=== PATIENT | male | born 1945 | race Caucasian/White ===

== ENCOUNTER 2021-12-29 12:53 | Emergency (ER) | payer MEDICARE, OTHER, SELFPAY ==
[2021-12-29 13:03] VITALS: BP 140/71; PULSE 78; RESP 18; TEMP 36.4; O2SAT 98
--- NOTE | 2021-12-29 13:15 | DI.RAD_ITS ---
Exam(s) XR PORTABLE CHEST AP EXAM: XR PORTABLE CHEST AP CLINICAL HISTORY: cough. copd TECHNIQUE: 2D digital imaging was performed. COMPARISON: No exams were available for comparison FINDINGS: LUNGS: Increased densities are noted above the left diaphragm suspicious for pneumonia. The remainde r of the lung logan appear clear. No pleural abnormality seen. HEART: Within normal limits in size. AORTA: Mildly ectatic. BONES: Degenerative changes in the spine and right shoulder. Soft tissues: Unremarkable. IMPRESSION: Left lower lobe infiltrate. DATA REPOSITORY: RADIATION DOSE DELIVERED:
--- NOTE | 2021-12-29 13:27 | ED.GENADUL_ITS ---
Discharge Plan Disposition Patient Disposition: HOME Condition: Stable Discharge Details Clinical Impression: Pneumonia Primary Care Provider: Mary Del Rio ED Provider: Sebastián Olguin Home Meds and New Rx's Prescriptions: New amoxicillin-pot clavulanate 875-125 mg tablet 1 tab PO BID 7 Days Qty: 14 0RF azithromycin 250 mg tablet 250 mg PO DAILY 4 Days Qty: 4 0RF Rx Instructions: start on day 2 of therapy albuterol sulfate 90 mcg/actuation HFA aerosol inhaler 2 puff inhalation Q6H PRNQty: 6.7 0RF amoxicillin-pot clavulanate 875-125 mg tablet 1 tab PO BID 7 Days Qty: 14 0RF azithromycin 250 mg tablet 250 mg PO DAILY 4 Days Qty: 4 0RF Rx Instructions: start on day 2 of therapy Discharge Instructions Instructions: Pneumonia (ED) Additional Instructions: Please follow with your primary care physician. Please take antibiotics as prescribed. Please return to the emergency department for any worsening symptoms. Medical Decision Making 76-year-old male history of COPD presents with wheeze cough nasal congestion fatigue and low-grade fever over the past 1 to 2 days in the setting of being exposed to someone who was positive for COVID. Hemodynamically stable no acute distress speaking full sentences lungs clear bilaterally, no hypoxia no tachypnea no tachycardia afebrile currently. Likely viral syndrome must also consider COVID-19 versus pneumonia versus COPD exacerbation low suspicion for cardiac etiology. Will obtain screening x-ray, nebs dexamethasone COVID swab likely home with close follow-up 14: 45 patient resting company no acute distress. Evidence of left lower lobe pneumonia on x-ray. Will treat empirically with Augmentin and azithromycin. Home care instructions and return precautions HPI General Date/Time Provider Initiated Documentation: 12/29/21 13:17 . HPI Narrative: 76-year-old male history of COPD, presents with cough wheezing nasal congestion low-grade fever over the past 1 to 2 days. Of note was recently exposed to someone who was COVID-positive. Related Data Home Medications Medication Instructions Recorded Confirmed albuterol sulfate 90 mcg/actuation 2 puff inhalation Q6H PRN #6.7 12/29/21 aerosol inhaler grams amoxicillin 875 mg-potassium 1 tab PO BID 7 days #14 tabs 12/29/21 clavulanate 125 mg tablet amoxicillin 875 mg-potassium 1 tab PO BID 7 days #14 tabs 12/29/21 clavulanate 125 mg tablet azithromycin 250 mg tablet 250 mg PO DAILY 4 days #4 tabs 12/29/21 azithromycin 250 mg tablet 250 mg PO DAILY 4 days #4 tabs 12/29/21 Previous Rx's Medication Instructions Recorded albuterol sulfate 90 mcg/actuation 2 puff inhalation Q6H PRN #6.7 12/29/21 aerosol inhaler grams amoxicillin 875 mg-potassium 1 tab PO BID 7 days #14 tabs 12/29/21 clavulanate 125 mg tablet amoxicillin 875 mg-potassium 1 tab PO BID 7 days #14 tabs 12/29/21 clavulanate 125 mg tablet azithromycin 250 mg tablet 250 mg PO DAILY 4 days #4 tabs 12/29/21 azithromycin 250 mg tablet 250 mg PO DAILY 4 days #4 tabs 12/29/21 Allergies Allergy/AdvReac Type Severity Reaction Status Date / Time Sulfa (Sulfonamide Allergy Unverified 12/29/21 13:52 Antibiotics) General Stated Complaint: [employer] MANUEL: 4 Review of Systems Narrative: Review of Systems Constitutional: negative Eyes: negative ENT: Nasal congestion Cardiovascular: negative Respiratory: Cough, wheeze Gastrointestinal: negative : negative Musculoskeletal: negative Skin: negative Neurologic: negative Psych: negative PFSH All Active Problems (Updated 12/29/21 @ 14:47 by Sebastián Olguin MD) Pneumonia (Acute) Social History Smoking/Tobacco Use Status: Former Tobacco Use Smoking risk assessment performed?: Yes Alcohol Intake: current Alcohol Intake frequency: 3 or more drinks per day Drug use: Never Substance use type: does not use Do you feel safe at home: Yes Do you feel safe in your relationship?: Yes Exam Narrative Exam Narrative: Physical Examination General: alert, awake, cooperative, resting comfortably, no acute distress HEENT: normocephalic, atraumatic; PERRL, EOM intact, conjunctiva normal; no nasal discharge; moist mucous membranes, oral and pharyngeal mucosa normal, tolerating secretions Neck: supple, trachea midline; full ROM Chest: normal to inspection Respiratory: normal respiratory effort, speaking in full sentences, clear to auscultation, no wheezing, rales or rhonchi Cardiac: regular rate, regular rhythm, S1S2 intact, no murmurs rubs or gallops GI: abdomen soft, non-tender, non-distended; no palpable mass or hepatosplenomegaly Skin: no lesions, rashes or trauma appreciated Neuro: AAOx3, normal speech, moving all extremities Psych: Appropriate mood and affect Course Vital Signs Vital signs: Vital Signs Temperature 36.4 C L 12/29/21 13:03 Pulse 78 12/29/21 13:03 Respiratory Rate 18 12/29/21 13:03 Blood Pressure 140/71 12/29/21 13:03 Pulse Oximetry 98 12/29/21 13:03 Temperature 36.4 C L 12/29/21 13:03 Temperature Source Temporal Artery Scan 12/29/21 13:03 Pulse 78 12/29/21 13:03 Respiratory Rate 18 12/29/21 13:03 Respiratory Effort Non-Labored 12/29/21 13:06 Blood Pressure 140/71 12/29/21 13:03 Blood Pressure Position Sitting 12/29/21 13:03 Pulse Oximetry 98 12/29/21 13:03 Oxygen Delivery Method Room Air 12/29/21 13:03 Oxygen Flow Rate 0 12/29/21 13:03 PAWSS Have you Been Recently Intoxicated or Drunk Within the Last 30 days?: No Have you Ever Experienced Previous Episodes of Alcohol Withdrawal?: No Have you ever Experienced Withdrawal Seizures?: No Have you ever Experienced Delirium Tremens(DT)s?: No Have you ever undergone Alcohol Rehabilitation Treatment (i.e, inpt ot outpatient treatment programs)?: No Have you ever Experienced Blackouts?: No Have you ever Combined Alcohol with other Downers within the last 90 days?: No Have you ever Combined Alcohol with any other Substance of Abuse during the last 90 days?: No Positive Blood Alcohol level on Presentation? [PCS.BAL]: No Evidence of Increased Autonomic Activity (i.e. HR>120, tremor, sweating, agitation, nausea)?: No Result: 0
[2021-12-29] MEDS: Dexamethasone 10 MG/ML VIAL IM (13:49)
[2021-12-29] MEDS: Albuterol/Ipratropium 3 ML UPD VIAL UPD (13:50)
[2021-12-29 13:53] VITALS: RESP 18
[2021-12-29] MEDS: Azithromycin 250 MG TAB 500 MG PO (14:33)
[2021-12-29] MEDS: Amoxicillin 875/Clav. 125 TAB PO (14:34)
[2021-12-29 14:35] LABS: Source Nasal/Nares
[2021-12-29 15:00] LABS: COVID-19 PCR POSITIVE (Negative)
[2021-12-29 15:37] VITALS: BP 157/83; PULSE 81; RESP 20; O2SAT 98
== END 2021-12-29 15:38 | disposition home or self-care (01) ==
PROVIDERS: Emergency Provider Emergency Medicine
DX: U07.1 COVID-19 (principal); J12.82 Pneumonia due to coronavirus disease 2019; J44.9 Chronic obstructive pulmonary disease, unspecified; Z87.891 Personal history of nicotine dependence
CPT/HCPCS: 87635; 94640; 96372; 99284; 71045; J1100; J7620

== ENCOUNTER 2023-12-09 10:08 | Emergency (ER) | payer MEDICARE, OTHER, SELFPAY ==
[2023-12-09] VITALS (34 sets, daily range): BP systolic 128–175; BP diastolic 69–111; PULSE 73–100; RESP 13–38; TEMP 38.8; O2SAT 97–100
--- NOTE | 2023-12-09 10:30 | RT.EKG_ITS ---
APPROVED REPORT Exam: Resting ECG Reason for Exam: SOB Patient Location: E HR:87 bpm ECG Measurements Heart Rate 87 AXIS HI 222 P 56 QRSd 97 QRS -10 QT 345 T 1 QTc 416 Conclusion Sinus rhythm...normal P axis, V-rate 60- 99 Prolonged HI interval...HI >220, V-rate 50- 90 Low voltage, precordial leads...precordial leads <1.0mV
--- NOTE | 2023-12-09 10:30 | DI.RAD_ITS ---
Exam(s) XR PORTABLE CHEST AP EXAM: XR PORTABLE CHEST AP CLINICAL HISTORY: SOB, Cough, PUI. TECHNIQUE: 2D digital imaging was performed. COMPARISON: CR XR PORTABLE CHEST AP from 12/29/2021 FINDINGS: Single AP portable view. Limited by portable AP lordotic technique and poor inspiratory effort. Heart size is upper normal. The mediastinum is not widened. Mild increased markings noted in the right lung base. Left lung appears clear. No obvious pleural e ffusions. Advanced degenerative changes in the right shoulder glenohumeral joint. IMPRESSION: As above. Recommend nonportable PA and lateral views when clinically possible. DATA REPOSITORY: RADIATION DOSE DELIVERED:
--- NOTE | 2023-12-09 10:41 | ED.GENADUL_ITS ---
Discharge Plan Disposition Patient Disposition: Home Condition: Stable Discharge Details Clinical Impression: Pneumonia Primary Care Provider: Mary Del Rio ED Provider: Tawanna Huff Home Meds and New Rx's Prescriptions: New doxycycline hyclate 100 mg capsule 100 mg PO BID 10 Days Qty: 20 0RF Rx Instructions: Take 1 tablet twice daily for the next 10 days Continued albuterol sulfate 90 mcg/actuation HFA aerosol inhaler 2 puff inhalation Q6H PRNQty: 6.7 0RF atorvastatin 40 mg tablet 40 mg PO DAILY levocetirizine 5 mg tablet 5 mg PO DAILY montelukast 10 mg tablet 10 mg PO DAILY tamsulosin 0.4 mg capsule 0.4 mg PO DAILY valsartan 320 mg tablet 320 mg PO DAILY verapamil 240 mg capsule,ext rel. pellets 24 hr 240 mg PO DAILY triamcinolone acetonide 0.025 % cream 1 applic TOPICAL DAILY PRN minocycline 100 mg capsule 100 mg PO DAILY betamethasone dipropionate 0.05 % cream 1 applic TOPICAL BID Patient Comments: APPLY TO RASH ON BACK TWICE DAILY FOR 2 TO 3 WEEKS etodolac 500 mg tablet 500 mg PO ONCE PRN levothyroxine [Synthroid] 88 mcg tablet 88 mcg PO DAILY Discharge Instructions Instructions: Pneumonia, Adult ED Additional Instructions: Today the chest x-ray appears you have pneumonia. Please take the antibiotic with yogurt or a probiotic twice daily as directed for the next 10 days. Increase oral fluids. Follow up with primary care provider in 3-5 days. Return to ED sooner if any worsening cough, shortness of breath, confusion or concerns. Please take Tylenol or Ibuprofen with food every 4-6 hours as needed for pain and swelling. Continue to use your albuterol inhaler as previously prescribed 1 or 2 puffs every 4-6 hours as needed. Referrals: Mary Del Rio MD [Primary Care Provider] - 5 days HPI General Mode of arrival: ambulatory . Date/Time Provider Initiated Documentation: 12/09/23 10:25 . Limitations to Documentation: no limitations . Information obtained by: patient, RN notes reviewed and old records reviewed . HPI Narrative: 78-year-old male presents to the ER with a chief complaint of URI type symptoms, cough fever and bodyaches since last night. He also reports sore throat. Ibuprofen at 9:00. He is febrile upon arrival. He does have expiratory wheezes with auscultation, does take albuterol as needed. Other past medical history includes high cholesterol, hypothyroidism hypertension. Denies any chest pain, nausea vomiting diarrhea or any other associated symptoms. Related Data Home Medications ?Medication ?Instructions ?Recorded ?Confirmed albuterol sulfate 90 mcg/actuation 2 puff inhalation Q6H PRN #6.7 12/29/21 12/09/23 aerosol inhaler grams atorvastatin 40 mg tablet 40 mg PO DAILY 12/09/23 12/09/23 betamethasone dipropionate 0.05 % 1 applic topical BID 12/09/23 12/09/23 topical cream doxycycline hyclate 100 mg capsule 100 mg PO BID Pneumonia 10 days 12/09/23 #20 caps etodolac 500 mg tablet 500 mg PO ONCE PRN 12/09/23 12/09/23 levocetirizine 5 mg tablet 5 mg PO DAILY 12/09/23 12/09/23 levothyroxine 88 mcg tablet 88 mcg PO DAILY 12/09/23 12/09/23 (Synthroid) minocycline 100 mg capsule 100 mg PO DAILY 12/09/23 12/09/23 montelukast 10 mg tablet 10 mg PO DAILY 12/09/23 12/09/23 tamsulosin 0.4 mg capsule 0.4 mg PO DAILY 12/09/23 12/09/23 triamcinolone acetonide 0.025 % 1 applic topical DAILY PRN 12/09/23 12/09/23 topical cream valsartan 320 mg tablet 320 mg PO DAILY 12/09/23 12/09/23 verapamil 240 mg 24 hr 240 mg PO DAILY 12/09/23 12/09/23 capsule,extended release Previous Rx's ?Medication ?Instructions ?Recorded albuterol sulfate 90 mcg/actuation 2 puff inhalation Q6H PRN #6.7 12/29/21 aerosol inhaler grams doxycycline hyclate 100 mg capsule 100 mg PO BID Pneumonia 10 days 12/09/23 #20 caps Allergies Allergy/AdvReac Type Severity Reaction Status Date / Time Sulfa (Sulfonamide Allergy Unverified 12/29/21 13:52 Antibiotics) General Stated Complaint: RespSymp MANUEL: 3 Review of Systems All systems reviewed & are unremarkable except as noted in HPI and below Constitutional Constitutional: Reports as per HPI, Reports body ache(s) and Reports fever(s) Cardiovascular Cardiovascular: Reports dyspnea Respiratory Respiratory: Reports change in phlegm color (Green), Reports cough, Reports pain with cough and Reports dyspnea Exam Narrative Exam Narrative: Constitutional: Alert and oriented x3. Appears stated age. Normal body habitus. Head: Normocephalic, no trauma. Eyes: Pupils PERRL, Red reflex noted, EOM's intact. Eyelids symmetrical without lesions, discharge, or swelling. ENT: Bilateral TM's WNL, External ear normal to inspection, no mastoid TTP, swelling, or erythema, Nasal turbinates WNL, no nasal discharge. Normal dentition, Posterior pharynx WNL, no exudate. Chest: RRR, Normal S1, S2, distal pulses intact. Resp: Expiratory wheezes throughout, scattered Abdomen: Soft, non-distended, Normoactive bowel sounds all 4 quads. Musculoskeletal: Normal gait, Moves all 4 extremities without difficulty. Skin: No suspicious rashes or lesions. Capillary refill less than 2 sec. Neurologic: Cranial nerves II-XII intact. Alert and oriented x 3. Motor: No deficits noted. Sensory: Intact bilaterally all 4 extremities. Hematologic/Lymphatic: No ecchymosis, no lymphadenopathy. Course Vital Signs Vital signs: Vital Signs Temperature 38.8 C H 12/09/23 10:20 Pulse 77 12/09/23 10:20 Respiratory Rate 24 12/09/23 10:20 Blood Pressure 161/83 H 12/09/23 10:20 Pulse Oximetry 98 12/09/23 10:20 Temperature 38.8 C H 12/09/23 10:20 Temperature Source Oral 12/09/23 10:20 Pulse 77 12/09/23 10:20 Respiratory Rate 24 12/09/23 10:20 Blood Pressure 161/83 H 12/09/23 10:20 Blood Pressure Position Sitting 12/09/23 10:20 Pulse Oximetry 98 12/09/23 10:20 Oxygen Delivery Method Room Air 12/09/23 10:20 Oxygen Flow Rate 0 12/09/23 10:20 Pain Level 5 12/09/23 10:20 Lab/Test Results Lab/Test Results: 12/09/23 10:40 Blood Blood Culture - Pending 12/09/23 10:40 Blood Blood Culture - Pending Medical Decision Making 78-year-old male presents to the ER with a chief complaint of URI type symptoms, cough fever and bodyaches since last night. He also reports sore throat. Ibuprofen at 9:00. He is febrile upon arrival. He does have expiratory wheezes with auscultation, does take albuterol as needed. Other past medical history includes high cholesterol, hypothyroidism hypertension. Denies any chest pain, nausea vomiting diarrhea or any other associated symptoms. Workup ordered including serial troponins, CBC CMP lactate blood cultures x 2 chest x-ray Fluvid Initial troponin less than 50 lactate 2.4 no leukocytosis, negative COVID flu RSV. Chest x-ray shows pneumonia, EKG within normal limits. Please see official report. X-ray shows pneumonia, patient is getting doxycycline 100 mg IV piggyback. Negative for COVID flu RSV. Lactate is 2.4. BUN 19 creatinine 1.2 discussed home care and x-ray results. I did offer admission patient is requesting to be discharged home at this time. He is declining admission. is at bedside he does have medical decision-making capacity is alert and oriented, O2 sat has been stable with room air. This text was generated using [employer] dictation system, please disregard any oddities of phrase or misspellings. Medical Records Medical records reviewed: Yes I reviewed the patient's medical records. Lab Data Lab results reviewed: Yes I reviewed the patient's lab results. Labs: 12/09/23 12:15 Blood Blood Culture - Pending 12/09/23 11:15 Blood Blood Culture - Pending Laboratory Tests Range/Units 12/09/23 12/09/23 12/09/23 10:24 11:15 12:15 WBC (4.4-10.8) 10^3/uL 3.89 L RBC (4.36-5.78) 10^6/uL 4.17 L Hgb (13.5-17.5) g/dL 13.7 Hct (40.0-50.0) % 41.5 MCV (80-95) fL 100 H MCH (27.0-33.0) pg 32.9 MCHC (32.0-36.0) % 33.0 RDW (11.8-14.1) % 12.5 Plt Count (130-400) 10^3/uL 110 L MPV (8.0-11.0) fL 10.7 Immature Gran % % 0.3 Neutrophils % % 68.4 Lymphocytes % % 17.7 Monocytes % % 11.8 Eosinophils % % 0.8 Basophils % % 1.0 Nucleated RBC % (0.0-0.3) % 0.0 Absolute Neutrophils (1.2-6.7) 10^3/uL 2.66 Absolute Lymphocytes (1.2-3.4) 10^3/uL 0.69 L Absolute Monocytes (0.1-0.8) 10^3/uL 0.46 Absolute Eosinophils (0.0-0.7) 10^3/uL 0.03 Absolute Basophils (0.0-0.2) 10^3/uL 0.04 VBG Lactate (0.6-1.4) mmol/L 2.4 H* Sodium (136-145) mmol/L 138 Potassium (3.5-5.1) mmol/L 4.3 Chloride (98-107) mmol/L 102 Carbon Dioxide (21.0-32.0) mmol/L 27.9 Anion Gap (3-11) mmol/L 8.1 BUN (7-18) mg/dL 19 H Creatinine (0.70-1.30) mg/dL 1.2 Est GFR (CKD-EPI 2020) (mL/min/1.73m2) 61.13 Glucose (74-106) mg/dL 111 H Calcium (8.5-10.1) mg/dL 8.8 Total Bilirubin (0.2-1.0) mg/dL 0.88 AST (15-37) U/L 25 ALT (16-63) U/L 24 Alkaline Phosphatase (46-116) U/L 76 Troponin I (< or =60) ng/L < 50 Total Protein (6.4-8.2) g/dL 7.8 Albumin (3.4-5.0) g/dL 3.9 COVID-19 Source Nasopharynx SARS-CoV-2 (PCR) (Negative) Negative Influenza Type A (PCR) (Negative) Negative Influenza Type B (PCR) (Negative) Negative RSV (PCR) (Negative) Negative Quality:SDOH Health Related Social Needs: No Data to Display PFSH All Active Problems (Updated 12/09/23 @ 13:32 by Tawanna Huff NP) Pneumonia (Acute) Social History Smoking/Tobacco Use Status: Former Tobacco Use Smoking risk assessment performed?: Yes Alcohol Intake: current Alcohol Intake frequency: 3 or more drinks per day Drug use: Never Substance use type: does not use Do you feel safe at home: Yes Do you feel safe in your relationship?: Yes
[2023-12-09 11:23] LABS: Abs Immature Grans 0.01 10^3/uL (0.0-0.06); Absolute Basophil Count 0.04 10^3/uL (0.0-0.2); Absolute Eosinophil Count 0.03 10^3/uL (0.0-0.7); Absolute Lymphocyte Count 0.69 10^3/uL (1.2-3.4); Absolute Monocyte Count 0.46 10^3/uL (0.1-0.8); Absolute Neutrophil Count 2.66 10^3/uL (1.2-6.7); Eosinophils % 0.8 %; HCT 41.5 % (40.0-50.0); HGB 13.7 g/dL (13.5-17.5); Immature Grans % 0.3 %; Lymphocytes % 17.7 %; MCH 32.9 pg (27.0-33.0); MCV 100 fL (80-95); MPV 10.7 fL (8.0-11.0); Monocytes % 11.8 %; Neutrophils % 68.4 %; Platelet Count 110 10^3/uL (130-400); RBC 4.17 10^6/uL (4.36-5.78); RDW 12.5 % (11.8-14.1); WBC 3.89 10^3/uL (4.4-10.8)
[2023-12-09 11:31] LABS: COVID-19 PCR Negative (Negative); Influenza A PCR Negative (Negative); Influenza B PCR Negative (Negative); RSV PCR Negative (Negative)
[2023-12-09 11:32] LABS: Source Nasopharynx
[2023-12-09 11:39] LABS: ALT 24 U/L (16-63); AST 25 U/L (15-37); Albumin 3.9 g/dL (3.4-5.0); Alkaline Phosphatase 76 U/L (46-116); Anion Gap 8.1 mmol/L (3-11); BUN 19 mg/dL (7-18); Bilirubin, Total 0.88 mg/dL (0.2-1.0); CO2 27.9 mmol/L (21.0-32.0); CREATININE 1.2 mg/dL (0.70-1.30); Calcium 8.8 mg/dL (8.5-10.1); Chloride 102 mmol/L (98-107); Estimated GFR 61.13 (mL/min/1.73m2); Glucose 111 mg/dL (74-106); Potassium 4.3 mmol/L (3.5-5.1); Sodium 138 mmol/L (136-145); Total Protein 7.8 g/dL (6.4-8.2)
--- NOTE | 2023-12-09 11:41 | DI.VRAD_ITS ---
PROCEDURE INFORMATION: Exam: XR Chest Exam date and time: 12/09/2023 11:28 AM Age: 78 years old Clinical indication: Other: SOB, cough, pui TECHNIQUE: Imaging protocol: Radiologic exam of the chest. Views: 1 view. COMPARISON: CR XR PORTABLE CHEST AP 12/29/2021 1:29 PM FINDINGS: Lungs: Mild opacity in the right base may represent atelectasis or pneumonia. Pleural spaces: Unremarkable. No pleural effusion. No pneumothorax. Heart/Mediastinum: Unremarkable. No cardiomegaly. Bones/joints: Severe degenerative changes in the right shoulder IMPRESSION: Mild opacity in the right base may represent atelectasis or pneumonia. Dictated and Authenticated by: Emile Olivares MD. Ordering:ANA ROSA Stacy MD
[2023-12-09 11:54] LABS: Troponin I < 50 ng/L (< or =60)
[2023-12-09] MEDS: DOXYCYCLINE 100 MG in Normal Saline 100 ML IVPB (12:00)
[2023-12-09 12:31] LABS: Lactate 2.4 mmol/L (0.6-1.4)
[2023-12-09] MEDS: Normal Saline 1,000 ML 1000 ML IV (13:15)
[2023-12-09] MEDS: Acetaminophen 500 MG TAB 1000 MG PO (13:56)
[2023-12-09] MEDS: Doxycycline Hyclate 100 MG, 2 CAPS/BTL PO (13:56)
== END 2023-12-09 14:26 | disposition home or self-care (01) ==
PROVIDERS: Emergency Provider Registered Nurse Emergency
DX: J18.9 Pneumonia, unspecified organism (principal); R50.9 Fever, unspecified; R07.0 Pain in throat; R06.02 Shortness of breath
CPT/HCPCS: 36415; 80053; 87040; 87637; 93005; 96361; 96365; 99284; 71045; 83605; 84484; 85025; 93010; 99283